=== PATIENT | female | born 1965 | race Caucasian/White ===

== ENCOUNTER → 2017-04-16 | Outpatient (CLI) | payer OTHER ==
--- NOTE | 2017-04-16 15:11 | XR ---
EXAMINATION TYPE: XR toes RT DATE OF EXAM: 04/16/2017 COMPARISON: NONE HISTORY: Second toe deformity and fourth toe injury 2 months ago. TECHNIQUE: 3 radiographic views of the right foot were obtained. FINDINGS: There is a persistent flexion deformity on all 3 views at the proximal interphalangeal join t of the second digit with varus angulation. Partially healed and callused obliquely oriented fractur e of the proximal phalanx of the fourth digit is also noted. No acute fracture or dislocation is iden tified. Small plantar enthesophyte is incidentally noted. Osseous mineralization is within normal grant its. No radiopaque foreign body. IMPRESSION: 1. Partially obliquely oriented fracture of the proximal phalanx of the fourth digit. 2. Flexion deformity of the second digit proximal interphalangeal joint with varus angulation of the second digit. Orthopedic consultation and/or MR could be performed to evaluate for ligamentous and/or tendinous injury contributing to the fixed flexion deformity. 3. Small plantar enthesophyte/heel spur.
== END | disposition home or self-care (01) ==
LOC: RADXRYALE 14:14
PROVIDERS: ATTEND Nurse Practitioner Family
DX: S92.511A Displaced fracture of proximal phalanx of right lesser toe(s), initial encounter for closed fracture (principal); M21.271 Flexion deformity, right ankle and toes; M77.9 Enthesopathy, unspecified

== ENCOUNTER → 2017-10-08 | Outpatient (CLI) | payer OTHER ==
--- NOTE | 2017-10-08 10:50 | XR ---
EXAMINATION TYPE: XR shoulder complete RT DATE OF EXAM: 10/08/2017 COMPARISON: NONE HISTORY: 51 year-old female right anterior shoulder pain TECHNIQUE: 3 views FINDINGS: Mild marginal spurring at the AC joint which remains intact. Subacromial space is preserved. No tendi nous or bursal calcifications. Mild sclerosis of the greater tuberosity suggests subtle changes of ch ronic rotator cuff tendinopathy. No acute fracture, subluxation, or dislocation is seen. Visualized r ight hemithorax is clear. IMPRESSION: No acute osseous abnormality seen.
== END | disposition home or self-care (01) ==
LOC: RADXRMAIN 09:35
PROVIDERS: ATTEND Nurse Practitioner Family
DX: M25.511 Pain in right shoulder (principal)

== ENCOUNTER → 2018-05-22 | Outpatient (CLI) | payer OTHER ==
[2018-05-22 08:55] VITALS: BP 109/69; PULSE 67; RESP 18; TEMP 96.4; BMI 34.7
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
--- NOTE | 2018-05-23 11:29 | MM ---
Reason for exam: screening (asymptomatic). Last mammogram was performed 4 years and 8 months ago. Physical Findings: A clinical breast exam by your physician is recommended on an annual basis and results should be correlated with mammographic findings. MG Screening Mammo w CAD Bilateral CC and MLO view(s) were taken. Prior study comparison: April 12, 2001, bilateral diagnostic mammogram, performed at [facility]. The breast tissue is heterogeneously dense. This may lower the sensitivity of mammography. No suspicious abnormality. ASSESSMENT: Negative, BI-RAD 1 RECOMMENDATION: Routine screening mammogram of both breasts in 1 year.
== END | disposition home or self-care (01) ==
LOC: WWCWWP 08:36
PROVIDERS: ATTEND Pediatrics
DX: Z12.31 Encounter for screening mammogram for malignant neoplasm of breast (principal)
CPT/HCPCS: 77067

== ENCOUNTER → 2018-09-11 | Outpatient (CLI) | payer OTHER ==
--- NOTE | 2018-09-11 13:41 | XR ---
EXAMINATION TYPE: XR knee 4V RT DATE OF EXAM: 09/11/2018 CLINICAL HISTORY: Persistent medial knee pain with no known injury. TECHNIQUE: Three views of the right knee are obtained. Patellar sunrise view was also obtained. COMPARISON: 09/29/2013 FINDINGS: There is no acute fracture/dislocation evident in right knee. There is medial compartment joint space narrowing progressed from the prior. Small marginal osteophytes are seen within all 3 com partments also progressed from the prior. No patellar fracture or dislocation is seen. Small suprapat ellar joint effusion is suspected. IMPRESSION: There is no acute fracture or dislocation in the right knee. Moderate tricompartmental a rthropathy most pronounced in the medial compartment progressed from the prior 2013. Small suprapatel lar joint effusion is also suspected.
--- NOTE | 2018-09-11 13:42 | XR ---
EXAMINATION TYPE: XR wrist complete LT DATE OF EXAM: 09/11/2018 CLINICAL HISTORY: Generalized left wrist pain after strain injury TECHNIQUE: Frontal, lateral and oblique images of the left wrist are obtained. COMPARISON: None FINDINGS: There is no acute fracture/dislocation evident in the left wrist. The joint spaces in the left wrist appear within normal limits. The overlying soft tissue appears unremarkable. IMPRESSION: There is no acute fracture or dislocation in the left wrist.
== END | disposition home or self-care (01) ==
LOC: RADXRYALE 13:10
PROVIDERS: ATTEND Physician Assistant
DX: M17.11 Unilateral primary osteoarthritis, right knee (principal); M25.532 Pain in left wrist

== ENCOUNTER → 2019-03-19 | Outpatient (CLI) | payer OTHER ==
--- NOTE | 2019-03-20 11:40 | MR ---
EXAMINATION TYPE: MR shoulder RT wo con DATE OF EXAM: 03/19/2019 COMPARISON: X-ray 10/08/2017 HISTORY: Rt shoulder pain TECHNIQUE: Multiplanar, multisequence imaging of the right shoulder is performed without contrast. FINDINGS: Hypertrophic changes involving the AC joint results in impingement. Benign cystic changes involving the humeral head likely in the basis of chronic injury. Glenohumeral ligaments intact. Bony labrum are intact by nonarthrogram technique. Small joint effusion is seen within the glenohumer al joint. There is a moderate amount of fluid in the subdeltoid subacromial bursa. There is a diffuse abnormal appearance of the distal 2 cm of the supraspinatus tendon extending to th e insertion with a partial through thickness tear measuring approximately 1.6 cm. Tendinopathy at the insertion of the infraspinatus tendon. Subscapularis tendon demonstrates fraying and increased signal at its insertion suggestive of partial tear and there is fluid seen adjacent to the subscapularis tendon which may have a degree of septati on which could represent bursitis or fluid extension from the subacromial subdeltoid bursa. Bicipital tendon is situated the bicipital groove although there is increased fluid surrounding the b icipital tendon. Biceps anchor is intact although there is increased intrasubstance signal seen withi n the intracapsular portion of the biceps tendon suggestive of split tear. IMPRESSION: 1. Impingement secondary to AC joint joint arthropathy with diffuse tendinopathy of the distal 2 cm o f the supraspinatus tendon. Near the insertion there is a partial through thickness tear measuring 1. 6 cm predominantly involving the anterior fibers. 2. Fraying and suspected partial tear at the insertion of the subscapularis tendon with no retraction . 3. Infraspinatus tendinopathy with no definite tear. 4. Bicipital moderate tendinosis suspicion for split tear involving the intracapsular portion of the biceps tendon.
== END | disposition home or self-care (01) ==
LOC: RADMRIMAIN 21:19
PROVIDERS: ATTEND Pediatrics
DX: M19.011 Primary osteoarthritis, right shoulder (principal); M25.811 Other specified joint disorders, right shoulder; M67.813 Other specified disorders of tendon, right shoulder; S46.811A Strain of other muscles, fascia and tendons at shoulder and upper arm level, right arm, initial encounter

== ENCOUNTER → 2020-03-31 | Outpatient (CLI) | payer OTHER ==
--- NOTE | 2020-04-04 12:55 | MR ---
EXAMINATION TYPE: MR knee RT wo con DATE OF EXAM: 03/31/2020 COMPARISON: Plain film 09/11/2018 HISTORY: Right knee pain TECHNIQUE: Multiplanar, multisequence imaging of the right knee is performed without IV contrast. FINDINGS: MEDIAL MENISCUS: There is a tear of the posterior horn, coronal image #[id number], abnormal increased intri nsic signal is present suggesting chronic findings with some mucoid degeneration. LATERAL MENISCUS: There is an increased intrinsic signal without definite tear CRUCIATE LIGAMENTS: The anterior and posterior cruciate ligaments are intact and unremarkable. COLLATERAL LIGAMENTS: The medial collateral ligament and lateral collateral ligament complex are inta ct and unremarkable. EXTENSOR MECHANISM: Visualized quadriceps and patellar tendons are intact. EFFUSION: Suprapatellar joint effusion is present POPLITEAL CYST: No popliteal/mcbride cyst. TRICOMPARTMENT SPACES: Joint space loss is present in the medial compartment, tricompartmental margin al spurring present CARTILAGE: Grade IV chondromalacia in the medial compartment, grade 3 to grade IV chondromalacia post erior patella. Grade 2 to grade III chondromalacia lateral compartment BONE MARROW SIGNAL: Subchondral geode formation, reactive marrow signal change in the medial femoral condyle, posterior patella, proximal tibia medially, there is some possible reactive marrow signal ch sydnee and proximal fibula OTHER: Loose bodies again noted, ossific density posterior to the lateral compartment measures appro ximately 9 mm, posterior to the lateral aspect of the medial compartment, coronal image #26 and sagit christiano image 17 measuring 8 mm. IMPRESSION: Osteoarthritis, synovial osteochondromatosis, loose bodies, tear the posterior horn the medial menisc us. Joint effusion
== END | disposition home or self-care (01) ==
LOC: RADMRIMAIN 18:35
PROVIDERS: ATTEND Pediatrics
DX: M17.11 Unilateral primary osteoarthritis, right knee (principal); S83.241A Other tear of medial meniscus, current injury, right knee, initial encounter; D48.0 Neoplasm of uncertain behavior of bone and articular cartilage; M23.41 Loose body in knee, right knee

== ENCOUNTER → 2020-07-28 | Outpatient (CLI) | payer OTHER ==
--- NOTE | 2020-07-29 08:56 | MM ---
Reason for exam: screening (asymptomatic). Last mammogram was performed 2 years and 2 months ago. Physical Findings: A clinical breast exam by your physician is recommended on an annual basis and results should be correlated with mammographic findings. MG Screening Mammo w CAD Bilateral CC and MLO view(s) were taken. Prior study comparison: May 22, 2018, bilateral MG screening mammo w CAD. September 24, 2013, mammogram, performed at [facility]. The breast tissue is heterogeneously dense. This may lower the sensitivity of mammography. Finding: There is a 10 mm obscured round density located 3 cm from the nipple in the anterior, central position of the left breast. New finding since May 22, 2018 and September 24, 2013. ASSESSMENT: Incomplete: need additional imaging evaluation, BI-RAD 0 RECOMMENDATION: Special view mammogram of the left breast. If lesion persists on supplemental views, image directed ultrasound is recommended. [facility] will attempt to contact patient to return for supplemental views and ultrasound if indicated.
== END | disposition home or self-care (01) ==
LOC: RADMAMWWP 09:55
PROVIDERS: ATTEND Pediatrics
DX: Z12.31 Encounter for screening mammogram for malignant neoplasm of breast (principal)
CPT/HCPCS: 77067

== ENCOUNTER → 2020-07-30 | Outpatient (CLI) | payer OTHER ==
--- NOTE | 2020-07-30 10:12 | MM ---
Reason for exam: additional evaluation requested from abnormal screening. Last mammogram was performed less than 1 month ago. History: Patient is postmenopausal. Physical Findings: Nurse did not find any significant physical abnormalities on exam. MG Work Up Mamm w CAD LT Spot compression CC, spot compression MLO, and LM view(s) were taken of the left breast. Prior study comparison: July 28, 2020, bilateral MG screening mammo w CAD. May 22, 2018, bilateral MG screening mammo w CAD. The breast tissue is heterogeneously dense. This may lower the sensitivity of mammography. The nodular subareolar focal asymmetry disperses on additional views. These results were verbally communicated with the patient and result sheet given to the patient on 07/30/20. ASSESSMENT: Negative, BI-RAD 1 RECOMMENDATION: Return to routine screening mammogram schedule for both breasts.
== END | disposition home or self-care (01) ==
LOC: RADMAMWWP 08:46
PROVIDERS: ATTEND Pediatrics
DX: R92.2 Inconclusive mammogram (principal)
CPT/HCPCS: 77065

== ENCOUNTER → 2022-04-28 | Outpatient (CLI) | payer OTHER ==
--- NOTE | 2022-05-01 07:38 | MM ---
Reason for Exam: Screening (asymptomatic). Last mammogram was performed 1 year(s) and 9 month(s) ago. Patient History: Menarche at age 12. First Full-Term at age 23. Postmenopausal. Risk Values: Martine 5 year model risk: 1.2%. NCI Lifetime model risk: 8.1%. Prior Study Comparison: 05/22/2018 Bilateral Screening Mammogram, [facility]. 07/28/2020 Bilateral Screening Mammogram, [facility]. 07/30/2020 Left Diagnostic Mammogram, [facility]. Tissue Density: The breast tissue is heterogeneously dense. This may lower the sensitivity of mammography. Findings: Analyzed By CAD. There is no suspicious group of microcalcifications or new suspicious mass in either breast. Overall Assessment: Negative, BI-RAD 1 Management: Screening Mammogram of both breasts in 1 year. A clinical breast exam by your physician is recommended on an annual basis and results should be correlated with mammographic findings. Electronically signed and approved by: Nicolas Cherry M.D.
== END | disposition home or self-care (01) ==
LOC: RADMAMWWP 09:14
PROVIDERS: ATTEND Pediatrics
DX: Z12.31 Encounter for screening mammogram for malignant neoplasm of breast (principal); Z78.0 Asymptomatic menopausal state
CPT/HCPCS: 77067

== ENCOUNTER → 2023-05-21 | Outpatient (CLI) | payer OTHER ==
--- NOTE | 2023-05-22 10:22 | XR ---
EXAMINATION TYPE: XR lumbosacral spine 5 views, XR Hip Complete 2 views LT, XR knee complete 3 views LT DATE OF EXAM: 05/21/2023 Comparison: None Clinical History: 57-year-old female [id number] LT KNEE PAIN Findings: Lumbar spine: Facet arthropathy mid to lower lumbar spine. Mild degenerative disc disease L5-S1. Vertebral body hei ghts are preserved and alignment is maintained. No pars interarticularis defects seen. Cholecystectom y clips. There is left L5 hemisacralization noted. Left hip: Mild early marginal spurring at the left hip with preservation of joint space. Mild spurring of the g reater trochanter. Phlebolith right side of the pelvis. No acute fracture, subluxation, or dislocatio n. Left knee: Trace knee joint effusion. Extensor mechanism is intact. No acute fracture, subluxation, dislocation. Impression: 1. Lumbar spine: Facet arthropathy mid to lower lumbar spine. Mild degenerative disc disease L5-S1. L eft L5 hemisacralization which may be a source of pain in some patients. No vertebral compression col lapse or malalignment. 2. Left hip: No acute osseous abnormality seen. 3. Left knee: Trace knee joint effusion is nonspecific and may be reactive in no acute osseous abnorm ality seen.
== END | disposition home or self-care (01) ==
LOC: RADXRYALE 15:27
PROVIDERS: ATTEND Physician Assistant
DX: M47.817 Spondylosis without myelopathy or radiculopathy, lumbosacral region (principal); M25.462 Effusion, left knee; M25.562 Pain in left knee
CPT/HCPCS: 72110; 73502

== ENCOUNTER → 2023-05-25 | Outpatient (CLI) | payer OTHER ==
--- NOTE | 2023-05-26 07:44 | MR ---
EXAMINATION TYPE: MR knee LT wo con DATE OF EXAM: 05/25/2023 COMPARISON: Left knee x-ray May 21, 2023 HISTORY: Left knee medial pain x 2 weeks, S/P long distance running. TECHNIQUE: Multiplanar, multisequence images of the knee is performed without IV contrast. FINDINGS: MEDIAL MENISCUS: Some vague increased signal medial meniscus extends into posterior horn from central body. No definitive extension to articular surface is seen. LATERAL MENISCUS: Anterior and posterior horns are intact without tear. CRUCIATE LIGAMENTS: The posterior cruciate ligament is intact and unremarkable. Increased signal thro ughout the anterior cruciate ligament which remains intact. COLLATERAL LIGAMENTS: The medial collateral ligament and lateral collateral ligament complex are inta ct and unremarkable. EXTENSOR MECHANISM: Visualized quadriceps and patellar tendons are intact. EFFUSION: Small to moderate size suprapatellar joint effusion. POPLITEAL CYST: No popliteal/mcbride cyst. TRICOMPARTMENT SPACES: Mild to moderate tricompartment joint space loss with mild to minimal spurring . CARTILAGE: Chondromalacia patella with cartilaginous loss along the posterior patellar pole. BONE MARROW SIGNAL: There is linear diminished T1 signal involving the proximal medial tibia just bel ow the articular surface measuring 2.0 cm in transverse length coronal image 20 and 2.5 cm AP line sa gittal image 24 extending towards the posterior articular surface. There is significant surrounding i ncreased T2 signal involving the proximal medial tibia. OTHER: No additional significant abnormality is appreciated. IMPRESSION: 1. There is subchondral insufficiency or stress fracture through the medial proximal tibia with assoc iated osseous contusion injury. 2. Intrasubstance tear medial meniscus, no full-thickness meniscal tear clearly seen. 3. Sprain injury to the anterior cruciate ligament. No full thickness tear. 4. Small to moderate-size suprapatellar joint effusion. 5. Mild to moderate tricompartment degenerative changes are present as detailed above.
== END | disposition home or self-care (01) ==
LOC: RADMRIMAIN 18:37
PROVIDERS: ATTEND Orthopaedic Surgery
DX: S83.242A Other tear of medial meniscus, current injury, left knee, initial encounter (principal); S80.02XA Contusion of left knee, initial encounter; M17.12 Unilateral primary osteoarthritis, left knee; X58.XXXA Exposure to other specified factors, initial encounter

== ENCOUNTER → 2023-07-18 | Outpatient (CLI) | payer OTHER ==
--- NOTE | 2023-07-19 15:14 | MM ---
Reason for Exam: Screening (asymptomatic). Last mammogram was performed 1 year(s) and 3 month(s) ago. Patient History: Menarche at age 12. First Full-Term at age 23. Postmenopausal. Patient has history of breast feeding. Risk Values: Martine 5 year model risk: 1.2%. NCI Lifetime model risk: 7.9%. Prior Study Comparison: 05/22/2018 Bilateral Screening Mammogram, [facility]. 07/28/2020 Bilateral Screening Mammogram, [facility]. 07/30/2020 Left Diagnostic Mammogram, [facility]. 04/28/2022 Bilateral MG screening mammo w CAD, [facility]. Tissue Density: The breasts are heterogeneously dense, which may obscure small masses. Findings: Analyzed By CAD. There is no suspicious group of microcalcifications or new suspicious mass in either breast. Overall Assessment: Benign, BI-RAD 2 Management: Screening Mammogram of both breasts in 1 year. . Patient should continue monthly self-breast exams. A clinical breast exam by your physician is recommended on an annual basis. This exam should not preclude additional follow-up of suspicious palpable abnormalities. Note on Martine scores and lifetime risk: 1. A Martine score greater than 3% is considered moderate risk. If this is the case, consider specialist referral to assess eligibility for a risk reducing agent. 2. If overall lifetime risk for the development of breast cancer is 20% or higher, the patient may qualify for future screening with alternating mammogram and breast MRI. Electronically signed and approved by: Linwood Cheema M.D. Radiologis
== END | disposition home or self-care (01) ==
LOC: RADMAMWWP 09:14
PROVIDERS: ATTEND Pediatrics
DX: Z12.31 Encounter for screening mammogram for malignant neoplasm of breast (principal); Z78.0 Asymptomatic menopausal state
CPT/HCPCS: 77063; 77067

== ENCOUNTER → 2024-07-23 | Outpatient (CLI) | payer OTHER ==
--- NOTE | 2024-07-23 11:31 | MM ---
Reason for Exam: Screening (asymptomatic). Last screening mammogram was performed 12 month(s) ago. Patient History: Menarche at age 12. First Full-Term at age 23. Postmenopausal. Patient has history of breast feeding. Risk Values: Martine 5 year model risk: 1.3%. NCI Lifetime model risk: 7.7%. Prior Study Comparison: 07/30/2020 Left Diagnostic Mammogram, [facility]. 04/28/2022 Bilateral MG screening mammo w CAD, [facility]. 07/18/2023 Bilateral MG 3D screening mammo w/cad, [facility]. Tissue Density: The breasts are heterogeneously dense, which may obscure small masses. Findings: Analyzed By CAD. There is no suspicious group of microcalcifications or new suspicious mass in either breast. Overall Assessment: Negative, BI-RAD 1 Management: Screening Mammogram of both breasts in 1 year. . Patient should continue monthly self-breast exams. A clinical breast exam by your physician is recommended on an annual basis. This exam should not preclude additional follow-up of suspicious palpable abnormalities. Note on Martine scores and lifetime risk: 1. A Martine score greater than 3% is considered moderate risk. If this is the case, consider specialist referral to assess eligibility for a risk reducing agent. 2. If overall lifetime risk for the development of breast cancer is 20% or higher, the patient may qualify for future screening with alternating mammogram and breast MRI. [facility], , 07/23/2024 11:28 AM. Electronically signed and approved by: Linwood Cheema M.D. Radiologis
== END | disposition home or self-care (01) ==
LOC: RADMAMWWP 11:08
PROVIDERS: ATTEND Pediatrics
DX: Z12.31 Encounter for screening mammogram for malignant neoplasm of breast (principal); R92.333 Mammographic heterogeneous density, bilateral breasts; Z78.0 Asymptomatic menopausal state
CPT/HCPCS: 77067